=== PATIENT | female | born 1925 | race Caucasian/White ===

== ENCOUNTER 2017-03-01 16:44 | Emergency (ER) | payer MEDICARE | END 2017-03-01 18:00 | disposition home or self-care (01) | LOC: D.ER 16:44 | DX: G51.0 Bell's palsy (principal) ==

== ENCOUNTER → 2017-03-31 13:13 | Outpatient (CLI) | payer MEDICARE, OTHER | END | disposition home or self-care (01) | LOC: D.CT 13:13 | DX: G45.9 Transient cerebral ischemic attack, unspecified (principal) ==